=== PATIENT | female | born 1995 | race Hispanic/Latino ===

== ENCOUNTER 2022-05-16 22:16 | Emergency (ER) | payer OTHER, SELFPAY ==
[2022-05-16] MEDS ORDERED: Promethazine HCl 25 MG/ML VIAL ONE (22:58)
[2022-05-16] MEDS ORDERED: Ondansetron PF 4 MG/2 ML Vial ONE (22:58)
[2022-05-16 23:41] LABS: #Eosinphils 0.1 10x3/uL (0.0-0.5); #Monocytes 0.4 10x3/uL (0.0-1.1); #Neutrophils 7.9 10x3/uL (1.5-8.4); %Basophils 0.2 % (0.0-2.0); %Eosinophils 0.6 % (0.0-6.0); %Lymphocytes 12.9 % (18.0-47.0); %Monocytes 4.1 % (0.0-10.0); %Neutrophils 81.8 % (40.0-75.0); Hemoglobin 11.4 g/dL (12.0-15.5); Mean Corpuscular HGB CONC 34.7 g/dL (32.0-36.0); Mean Corpuscular Hemoglobin 32.2 pg (27.0-33.0); Mean Corpuscular Volume 92.9 fl (81.6-98.3); Mean Platelet Volume 9.6 fl (7.4-10.4); Platelet Count 200 10x3/uL (150-450); RBC Distribution Width 12.9 % (11.5-14.5); Red Blood Cell (RBC) Count 3.54 10x6/uL (3.90-5.03); White Blood Cell (WBC) Count 9.7 10x3/uL (3.5-10.5)
[2022-05-16 23:56] LABS: ALT (SGPT) 7 U/L (8-55); AST (SGOT) 10 U/L (5-34); Albumin 3.1 g/dL (3.5-5.0); Alkaline Phosphatase 36 U/L (40-110); Anion Gap 11 mmol/L (10-20); BUN (Urea Nitrogen) 7 mg/dL (7.0-18.7); Bilirubin, Total 0.4 mg/dL (0.2-1.2); Calc. Creatinine Clearance 0 mL/min (70-130); Calcium 8.4 mg/dL (7.8-10.44); Carbon Dioxide 20 mmol/L (22-29); Chloride 109 mmol/L (98-107); Estimated GFR 131; Globulin 2.5 g/dL (2.4-3.5); Glucose 78 mg/dL (70-105); Potassium 3.4 mmol/L (3.5-5.1); Protein, Total 5.6 g/dL (6.0-8.3); Sodium 137 mmol/L (136-145)
[2022-05-17 01:20] LABS: Bilirubin Neg (Negative); Blood, Urine Negative (Negative); Clarity Clear (Clear); Glucose, Urine (Dipstick) Normal (Negative); Ketone, Urine 150 mg/dL (Negative); Leukocyte 500 (Negative); Nitrite Negative (Negative); Protein, Urine (Dipstick) 15 mg/dl (Neg-Trace)
[2022-05-17 01:29] LABS: Bacteria/HPF 1+ HPF (None Seen)
== END 2022-05-17 02:10 | disposition home or self-care (01) ==
LOC: CSHERS 22:16
DX: O21.2 Late vomiting of pregnancy (principal); O99.891 Other specified diseases and conditions complicating pregnancy; R82.71 Bacteriuria; Z3A.22 22 weeks gestation of pregnancy
CPT/HCPCS: 36415; 80053; 81003; 81015; 85025; 96374; 96375; J2405; J2550

== ENCOUNTER 2022-09-10 23:26 | Inpatient (IN) | payer OTHER ==
[2022-09-11] MEDS ORDERED: Lidocaine 1% (PF) 30 ML VIAL SC PRN (00:19)
[2022-09-11] MEDS ORDERED: Promethazine HCl 25 MG/ML VIAL IM PRN ×3 (00:19→19:40)
[2022-09-11] MEDS ORDERED: Ibuprofen 800 MG TAB PO PRN (00:19)
[2022-09-11] MEDS ORDERED: Diphenoxylate HCl/Atropine Tablet PO PRN ×2 (00:19)
[2022-09-11] MEDS ORDERED: Tranexamic Acid 1,000 MG/10 ML VIAL IVP PRN (00:19)
[2022-09-11] MEDS ORDERED: Methylergonovine 0.2 MG/ML VIAL IM PRN (00:19)
[2022-09-11] MEDS ORDERED: Misoprostol 200 MCG TAB PR PRN (00:19)
[2022-09-11] MEDS ORDERED: Ondansetron PF 4 MG/2 ML Vial IVP PRN ×4 (00:19→20:03)
[2022-09-11] MEDS ORDERED: hydrALAZINE 20 MG/ML VIAL SLOW IVP PRN ×2 (00:19→20:03)
[2022-09-11] MEDS ORDERED: Acetaminophen 500 MG TAB PO PRN (00:19)
[2022-09-11] MEDS ORDERED: Carboprost 250 MCG/ML AMP IM PRN (00:19)
[2022-09-11] MEDS ORDERED: NS w/ Oxytocin 30 units 500 ML IV SCH (00:30)
[2022-09-11 00:57] VITALS: BMI 43.0
[2022-09-11 01:54] LABS: Mean Corpuscular HGB CONC 33.1 g/dL (32.0-36.0); Mean Corpuscular Hemoglobin 28.5 pg (27.0-33.0); Mean Platelet Volume 9.8 fl (7.4-10.4); Platelet Count 315 10x3/uL (150-450); RBC Distribution Width 13.8 % (11.5-14.5); Red Blood Cell (RBC) Count 4.21 10x6/uL (3.90-5.03); White Blood Cell (WBC) Count 11.1 10x3/uL (3.5-10.5)
[2022-09-11 02:49] LABS: HBSAg Index 0.15 S/CO (0-0.99); Hep B Surf Ag - L&D Non-Reactive S/CO (NonReactive); Syphilis Antibody Nonreactive (Nonreactive); Syphilis Antibody Index 0.05 S/CO (<1.00 Non-Reactive)
[2022-09-11] MEDS ORDERED: Fentanyl 2 mcg/Bup 0.1% Cadd 100 ML ONE (12:08)
[2022-09-11] MEDS: Lactated Ringer's 1,000 ML IV SCH (12:24)
[2022-09-11] MEDS ORDERED: Acetaminophen 325 MG TAB PO PRN ×2 (12:49→20:03)
[2022-09-11] MEDS ORDERED: Moisturizing Cream (Eucerin) 113 GM JAR TOP PRN ×2 (12:49→19:40)
[2022-09-11] MEDS ORDERED: diphenhydrAMINE 50 MG/ML VIAL IVP PRN ×2 (12:49→19:40)
[2022-09-11] MEDS ORDERED: Lactated Ringer's 500 ML IV PRN (12:49)
[2022-09-11] MEDS ORDERED: Naloxone HCl 0.4 mg/ml Vial IVP PRN ×4 (12:49→19:40)
[2022-09-11] MEDS ORDERED: ePHEDrine Sulfate 50 MG/10 ML VIAL SLOW IVP PRN (12:49)
[2022-09-11] MEDS ORDERED: Fentanyl 2 mcg/Bupivacaine 0.1% Cassette 100 ML EPIDURAL SCH (13:00)
[2022-09-11] MEDS ORDERED: Communication Order-Pharmacy FS SCH ×2 (13:00→19:45)
[2022-09-11] MEDS ORDERED: Sodium Chloride 0.9% 100 ML ONE ×2 (16:41→17:59)
[2022-09-11] MEDS ORDERED: CEFAZOLIN 2 GM VIAL ONE (16:41)
[2022-09-11] MEDS ORDERED: CEFAZOLIN 2 GM in Sodium Chloride 0.9% 100 ML IVPB SCH ×2 (16:45→18:00)
[2022-09-11] MEDS ORDERED: Dextrose 5%-Lactated Ringers 1,000 ML IV SCH (16:45)
[2022-09-11] MEDS ORDERED: Bicitra 30 ML UDCUP PO PRN (17:56)
[2022-09-11] MEDS ORDERED: Famotidine/PF 20 mg/2ml Vial SLOW IVP PRN (17:56)
[2022-09-11] MEDS ORDERED: Famotidine/PF 20 mg/2ml Vial ONE (17:59)
[2022-09-11] MEDS ORDERED: Azithromycin 500 MG VIAL ONE (17:59)
[2022-09-11] MEDS ORDERED: Ondansetron PF 4 MG/2 ML Vial ONE (18:12)
[2022-09-11] MEDS ORDERED: Oxytocin 10 UNITS/ML VIAL ONE (18:12)
[2022-09-11] MEDS ORDERED: Lidocaine 2% MPF 10 ML AMP (For Epidural Use) ONE ×2 (18:12→18:13)
[2022-09-11] MEDS ORDERED: Phenylephrine 10 MG/ML VIAL ONE (18:12)
[2022-09-11] MEDS ORDERED: Morphine PF 10 MG/10 ML VIAL ONE (18:24)
[2022-09-11] MEDS ORDERED: Fentanyl 100 MCG/2 ML VIAL ONE (19:03)
[2022-09-11] MEDS ORDERED: Promethazine HCl 25 MG SUPP PR PRN (19:40)
[2022-09-11] MEDS ORDERED: Ondansetron HCl/PF 4 MG/2 ML Vial IVP PRN (19:40)
[2022-09-11] MEDS ORDERED: Meperidine HCl/PF 25 MG/ML VIAL SLOW IVP PRN (19:40)
[2022-09-11] MEDS ORDERED: HYDROmorphone 2 MG/ML VIAL SLOW IVP PRN (19:40)
[2022-09-11] MEDS ORDERED: Fentanyl 100 MCG/2 ML VIAL SLOW IVP PRN (19:40)
[2022-09-11] MEDS ORDERED: Naloxone HCl 0.4 mg/ml Vial IV PRN (19:40)
[2022-09-11] MEDS ORDERED: Ketorolac Tromethamine 30 MG/ML VIAL IVP SCH (19:45)
[2022-09-11] MEDS ORDERED: Boostrix 0.5 ML (Tdap) VIAL (>/=7 yrs of age) IM ONE (20:03)
[2022-09-11] MEDS ORDERED: Bisacodyl 10 MG SUPP PR PRN (20:03)
[2022-09-11] MEDS ORDERED: Lanolin Ointment 7 GM TUBE TOP PRN (20:03)
[2022-09-11] MEDS ORDERED: Simethicone Chewable 80 MG TAB PO PRN (20:03)
[2022-09-11] MEDS: Ketorolac Tromethamine 30 MG/ML VIAL IVP PRN (20:38)
[2022-09-11] MEDS: Docusate 100 MG CAP PO SCH (21:08)
[2022-09-11] MEDS: Ferrous Sulfate 325 MG TAB PO SCH (21:08)
[2022-09-12] MEDS: Ampicillin 2 GM in Sodium Chloride 0.9% 100 ML IVPB SCH ×4 (00:07→18:32)
[2022-09-12] MEDS: Lactated Ringer's 1,000 ML IV SCH (00:20)
[2022-09-12 04:16] LABS: Hemoglobin 10.3 g/dL (12.0-15.5); Mean Corpuscular HGB CONC 32.6 g/dL (32.0-36.0); Mean Corpuscular Volume 85.9 fl (81.6-98.3); Mean Platelet Volume 10.1 fl (7.4-10.4); Platelet Count 255 10x3/uL (150-450); RBC Distribution Width 13.8 % (11.5-14.5); Red Blood Cell (RBC) Count 3.68 10x6/uL (3.90-5.03); White Blood Cell (WBC) Count 14.7 10x3/uL (3.5-10.5)
[2022-09-12] MEDS ORDERED: Bupivacaine 0.25% HCL 30 ML VIAL ONE (08:00)
[2022-09-12] MEDS: HYDROcodone/Acetaminophen 5/325 mg Tablet PO PRN ×4 (08:09→21:12)
[2022-09-12] MEDS: Docusate 100 MG CAP PO SCH ×2 (08:10→21:12)
[2022-09-12] MEDS: Prenatal Vitamin 1 TAB PO SCH (08:10)
[2022-09-12] MEDS: Ferrous Sulfate 325 MG TAB PO SCH ×2 (09:14→21:04)
[2022-09-12] MEDS: Ketorolac Tromethamine 30 MG/ML VIAL IVP PRN (10:24)
[2022-09-12] MEDS: Ibuprofen 800 MG TAB PO SCH (21:12)
[2022-09-13] MEDS: Ibuprofen 800 MG TAB PO SCH ×2 (05:44→13:29)
[2022-09-13] MEDS: Ferrous Sulfate 325 MG TAB PO SCH (07:51)
[2022-09-13] MEDS: Docusate 100 MG CAP PO SCH (08:36)
[2022-09-13] MEDS: HYDROcodone/Acetaminophen 5/325 mg Tablet PO PRN ×2 (08:36→13:29)
[2022-09-13] MEDS: Prenatal Vitamin 1 TAB PO SCH (08:36)
[2022-09-13 11:33] VITALS: BP 110/52; TEMP 98.3
== END 2022-09-13 14:20 | disposition home or self-care (01) | DRG 786 ==
LOC: CSHLD/OP 23:26 → CSHLD 09-11 00:19 → CSHPP 09-11 21:50
PROVIDERS: ADMIT Obstetrics & Gynecology; ATTEND Obstetrics & Gynecology
PROC: 10D00Z1 Extraction of Products of Conception, Low, Open Approach (ICD-10-PCS; principal; 2022-09-11)
DX: O42.02 Full-term premature rupture of membranes, onset of labor within 24 hours of rupture (principal); Z3A.38 38 weeks gestation of pregnancy; Z37.0 Single live birth; O41.1230 Chorioamnionitis, third trimester, not applicable or unspecified; D62 Acute posthemorrhagic anemia; O34.13 Maternal care for benign tumor of corpus uteri, third trimester; D25.9 Leiomyoma of uterus, unspecified; O32.2XX0 Maternal care for transverse and oblique lie, not applicable or unspecified; O90.81 Anemia of the puerperium
CPT/HCPCS: 36415; 51702; 85027; 86780; 86850; 86900; 86901; 87070; 87205; 87340; 99285; J0290; J1580; J1885; J2274; J2370; J2405; J2590; J3010; J3490; J7120; S0020; S0028